=== PATIENT | female | born 1965 | race African-American/Black ===

== ENCOUNTER 2017-02-24 02:44 | Emergency (ER) | payer OTHER ==
[~2017-02-24] VITALS: Ht 180.3 cm; Wt 78.0 kg
[~2017-02-24 02:44] MED LIST: AMLO10 PO; ATOR20TA15 PO; FERR325T PO; HYDR12.57 PO; PANT40TA3 PO
[2017-02-24 02:47] VITALS: BP 179/99; PULSE 124; RESP 16; TEMP 98.8; O2SAT 99
[2017-02-24] MEDS ORDERED: TRAM50TA PO (03:03)
[2017-02-24] MEDS ORDERED: SODIUM CHLORIDE 0.9% FLUSH 10 ML FLUSH IVF PRN (03:15)
--- NOTE | 2017-02-24 03:16 | PD ---
HPI Chief Complaint: Chest Pain Time Seen by Provider: 03:01 Travel History International Travel<30 days: No Contact w/Intl Traveler<30days: No Traveled to known affect area: No History of Present Illness HPI The patient is a 51-year-old [place] female who presents emergency department for chest pain and shortness of breath. The patient has a history of ovarian cancer and is status post total hysterectomy for her ovarian cancer by her surgical oncologist, Dr. Velasco. The patient states she is currently undergoing chemotherapy every 21 days, last chemotherapy was 8 days ago. The patient states she developed shortness of breath on Sunday, is constant, but waxes and wanes in intensity. She also complains of mild chest pain which is dull, achy, located over the anterior aspect of her chest. She denies any exertional symptoms and denies any alleviation of her symptoms with rest. The patient does note mild nausea with an episode of vomiting, but denies any diaphoresis. The patient does have a history tobacco use, but denies any personal history of COPD, asthma, pulmonary embolism, or DVT. The patient denies any history of diabetes or significant family history for heart disease, but does have a history of hypertension and hyperlipidemia. The patient's primary physician is Dr. Mares with [facility]. The patient denies any assisted fever, chills, sweats, or new cough. She does complain of bilateral legs aching, but denies any significant edema to the calves. She does complain of mild swelling of the right upper leg over the thigh area. PFSH Past Medical History Anemia: Yes Arthritis: No Asthma: No Blood Disorders: No Anxiety: No Depression: No Heart Rhythm Problems: No Cancer: Yes (ovarian ) Cardiac Catheterization: No Cardiovascular Problems: No High Cholesterol: No Chemotherapy: No Chest Pain: Yes Congestive Heart Failure: No COPD: No Cerebrovascular Accident: No Diabetes: No Diminished Hearing: No Endocrine: No Gastrointestinal Disorders: Yes (PT STATES THAT SHE HAS A SPOT ON HER LIVER BUT HAS NOT RECEIVED F/U CARE ) GERD: No Glaucoma: No Genitourinary: No Headaches: No Hepatitis: No Hiatal Hernia: No Hypertension: Yes Immune Disorder: No Kidney Stones: No Musculoskeletal: No Neurologic: No Psychiatric: No Reproductive: No Respiratory: No Immunizations Current: No Myocardial Infarction: No Radiation Therapy: No Renal Failure: No Seizures: No Sickle Cell Disease: No Sleep Apnea: No Thyroid Disease: No Ulcer: No ?: Not Tubal Ligation: Yes Past Surgical History Abdominal Surgery: No AICD: No Cardiac Surgery: No Coronary Artery Bypass Graft: No Ear Surgery: No Endocrine Surgery: No Eye Surgery: No Genitourinary Surgery: No Gynecologic Surgery: Yes (TUBAL LIGATION 1985) Joint Replacement: No Oral Surgery: No Pacemaker: No Thoracic Surgery: No Social History Alcohol Use: No Tobacco Use: Yes (1 PPD) Substance Use: No Allergies-Medications (Allergen,Severity, Reaction): Coded Allergies: No Known Allergies (Verified , 09/11/16) Reported Meds & Prescriptions Reported Meds & Active Scripts Active Reported Tramadol (Tramadol HCl) 50 Mg Tab 0 PO Q4H PRN Pantoprazole (Pantoprazole Sodium) 40 Mg Tab 40 Mg PO DAILY Atorvastatin (Atorvastatin Calcium) 20 Mg Tab 20 Mg PO DAILY Norvasc (Amlodipine Besylate) 10 Mg Tab 10 Mg PO DAILY Hydrochlorothiazide 12.5 Mg Cap 12.5 Mg PO DAILY Ferrous Sulfate 325 Mg Tab 325 Mg PO BID Review of Systems Except as stated in HPI: all other systems reviewed are Neg General / Constitutional: No: Fever, Chills Cardiovascular: Positive: Chest Pain or Discomfort, No: Diaphoresis, Dyspnea on exertion Respiratory: Positive: Shortness of Breath, No: Cough, Wheezing Gastrointestinal: Positive: Nausea, Vomiting, No: Abdominal Pain Musculoskeletal: Positive: Edema (right thigh) Neurologic: No: Dizziness Physical Exam Narrative GENERAL: Awake, alert, pleasant 51-year-old female who appears her stated age and is in no acute respiratory distress. SKIN: Focused skin assessment warm/dry. Psoriatic plaque over the anterior aspect of the abdomen on the left. HEAD: Atraumatic. Normocephalic. EYES: Pupils equal and round. No scleral icterus. No injection or drainage. ENT: No nasal bleeding or discharge. Mucous membranes pink and moist. NECK: Trachea midline. No JVD. CARDIOVASCULAR: Regular, tachycardic with a heart rate of 110. Port in place right chest wall. RESPIRATORY: No accessory muscle use. Clear to auscultation. Breath sounds equal bilaterally. GASTROINTESTINAL: Abdomen soft, non-tender, nondistended. No rebound tenderness. MUSCULOSKELETAL: No obvious deformities. No clubbing. No cyanosis. No edema. Calves are soft bilaterally. NEUROLOGICAL: Awake and alert. No obvious cranial nerve deficits. Motor grossly within normal limits. Normal speech. PSYCHIATRIC: Appropriate mood and affect; insight and judgment normal. Data Data Last Documented VS Vital Signs Date Time Temp Pulse Resp B/P Pulse Ox O2 Delivery O2 Flow Rate FiO2 02/24/17 03:24 99 Room Air 02/24/17 02:59 123 02/24/17 02:47 98.8 16 179/99 Orders Complete Blood Count With Diff (02/24/17 03:10) Comprehensive Metabolic Panel (02/24/17 03:10) B-Type Natriuretic Peptide (02/24/17 03:10) Act Partial Throm Time (Ptt) (02/24/17 03:10) Prothrombin Time / Inr (Pt) (02/24/17 03:10) Magnesium (Mg) (02/24/17 03:10) Ckmb (Isoenzyme) Profile (02/24/17 03:10) Troponin I (02/24/17 03:10) Urinalysis - C+S If Indicated (02/24/17 03:10) Blood Culture (02/24/17 03:10) Iv Access Insert/Monitor (02/24/17 03:10) Electrocardiogram (02/24/17 03:10) Ecg Monitoring (02/24/17 03:10) Oximetry (02/24/17 03:10) Oxygen Administration (02/24/17 03:10) Chest, Single Ap (02/24/17 03:10) Ct Pulmonary Angiogram (02/24/17 03:10) Sodium Chloride 0.9% Flush (Ns Flush) (02/24/17 03:15) Sodium Chlor 0.9% 1000 Ml Inj (Ns 1000 M (02/24/17 03:30) Iohexol 350 Inj (Omnipaque 350 Inj) (02/24/17 03:59) Potassium Chloride (Kcl) (02/24/17 05:00) Labs Laboratory Tests Test 02/24/17 03:10 White Blood Count 4.1 TH/MM3 Red Blood Count 2.96 MIL/MM3 Hemoglobin 8.4 GM/DL Hematocrit 25.3 % Mean Corpuscular Volume 85.4 FL Mean Corpuscular Hemoglobin 28.5 PG Mean Corpuscular Hemoglobin 33.3 % Concent Red Cell Distribution Width 25.6 % Platelet Count 104 TH/MM3 Mean Platelet Volume 7.6 FL Neutrophils (%) (Auto) 44.1 % Lymphocytes (%) (Auto) 48.0 % Monocytes (%) (Auto) 7.2 % Eosinophils (%) (Auto) 0.4 % Basophils (%) (Auto) 0.3 % Neutrophils # (Auto) 1.8 TH/MM3 Lymphocytes # (Auto) 2.0 TH/MM3 Monocytes # (Auto) 0.3 TH/MM3 Eosinophils # (Auto) 0.0 TH/MM3 Basophils # (Auto) 0.0 TH/MM3 CBC Comment AUTO DIFF Differential Comment AUTO DIFF CONFIRMED Prothrombin Time 11.2 SEC Prothromb Time International 1.0 RATIO Ratio Activated Partial 26.1 SEC Thromboplast Time Sodium Level 140 MEQ/L Potassium Level 3.0 MEQ/L Chloride Level 104 MEQ/L Carbon Dioxide Level 26.8 MEQ/L Anion Gap 9 MEQ/L Blood Urea Nitrogen 21 MG/DL Creatinine 0.99 MG/DL Estimat Glomerular Filtration 71 ML/MIN Rate Random Glucose 87 MG/DL Calcium Level 9.1 MG/DL Magnesium Level 0.9 MG/DL Total Bilirubin 0.2 MG/DL Aspartate Amino Transf 18 U/L (AST/SGOT) Alanine Aminotransferase 24 U/L (ALT/SGPT) Alkaline Phosphatase 87 U/L Total Creatine Kinase 78 U/L Troponin I LESS THAN 0.02 NG/ML B-Type Natriuretic Peptide 12 PG/ML Total Protein 7.7 GM/DL Albumin 3.7 GM/DL MDM Medical Decision Making Medical Screen Exam Complete: Yes Emergency Medical Condition: Yes Medical Record Reviewed: Yes Interpretation(s) EKG reveals sinus arrhythmia versus atrial fibrillation with RVR, rate 119. Laboratory Tests Test 02/24/17 03:10 White Blood Count 4.1 TH/MM3 Red Blood Count 2.96 MIL/MM3 Hemoglobin 8.4 GM/DL Hematocrit 25.3 % Mean Corpuscular Volume 85.4 FL Mean Corpuscular Hemoglobin 28.5 PG Mean Corpuscular Hemoglobin 33.3 % Concent Red Cell Distribution Width 25.6 % Platelet Count 104 TH/MM3 Mean Platelet Volume 7.6 FL Neutrophils (%) (Auto) 44.1 % Lymphocytes (%) (Auto) 48.0 % Monocytes (%) (Auto) 7.2 % Eosinophils (%) (Auto) 0.4 % Basophils (%) (Auto) 0.3 % Neutrophils # (Auto) 1.8 TH/MM3 Lymphocytes # (Auto) 2.0 TH/MM3 Monocytes # (Auto) 0.3 TH/MM3 Eosinophils # (Auto) 0.0 TH/MM3 Basophils # (Auto) 0.0 TH/MM3 CBC Comment AUTO DIFF Differential Comment AUTO DIFF CONFIRMED Prothrombin Time 11.2 SEC Prothromb Time International 1.0 RATIO Ratio Activated Partial 26.1 SEC Thromboplast Time Sodium Level 140 MEQ/L Potassium Level 3.0 MEQ/L Chloride Level 104 MEQ/L Carbon Dioxide Level 26.8 MEQ/L Anion Gap 9 MEQ/L Blood Urea Nitrogen 21 MG/DL Creatinine 0.99 MG/DL Estimat Glomerular Filtration 71 ML/MIN Rate Random Glucose 87 MG/DL Calcium Level 9.1 MG/DL Magnesium Level 0.9 MG/DL Total Bilirubin 0.2 MG/DL Aspartate Amino Transf 18 U/L (AST/SGOT) Alanine Aminotransferase 24 U/L (ALT/SGPT) Alkaline Phosphatase 87 U/L Total Creatine Kinase 78 U/L Troponin I LESS THAN 0.02 NG/ML B-Type Natriuretic Peptide 12 PG/ML Total Protein 7.7 GM/DL Albumin 3.7 GM/DL Last Impressions Chest X-Ray 02/24/17309 Signed Impressions: Service Date/Time: Friday, February 24, 2017 03:21 - CONCLUSION: No acute disease. Vincent Buitrago Jr., MD CT Angiography 02/24/17309 Signed Impressions: Service Date/Time: Friday, February 24, 2017 03:57 - CONCLUSION: 1. No acute abnormality. In particular, no pulmonary emboli. 2. Stable low density lesion involving the left lobe of the liver. This is poorly characterized on this study. Vincent Buitrago Jr., MD Differential Diagnosis Differential diagnosis includes pulmonary embolism, pneumonia, bronchitis, acute coronary syndrome, pleural effusion, STEMI. Narrative Course The patient did not want her port accessed. Therefore, IV was established, labs were drawn and sent, and the patient was placed on cardiac telemetry monitoring and continuous pulse oximetry monitoring. EKG was ordered and interpreted. Chest x-ray was obtained. CT pulmonary angiogram was ordered to evaluate for possible pulmonary embolism with a history of ovarian cancer, tachycardia, and shortness of breath. The patient's troponin is unremarkable. Chest x-ray was clear. CT pulmonary angiogram is negative for emboli. The patient was administered IV fluids, heart rate came down 88. The patient was reassessed at 4:45 AM, she had no chest pain or shortness of breath. I had a discussion with the patient, she states she had a stress test performed in September 2016 which was negative. The patient states her symptoms have improved. We discussed 23 hour observation versus discharge home. The patient would prefer to be discharged home and follow-up with Dr. Mares and Dr. Velasco. Therefore, patient will be provided pain medication per her request and will be discharged home with a copy of her CT results and lab results. She is advised to return if symptoms worsen or progress. The patient's potassium was low at 3.0, was replaced orally. Diagnosis Primary Impression: Dyspnea Qualified Code: R06.00 - Dyspnea, unspecified type Additional Impression: Atypical chest pain Patient Instructions: General Instructions Additional Instructions: Please provide a patient a copy of her labs, x-ray results, and CT results at discharge. Follow-up with your primary physician and surgical oncologist. Return if symptoms worsen or progress. Med/Other Pt SpecificInfo: Prescription(s) given Scripts Hydrocodone-Acetaminophen ([place])10-325 Mg Tab1 Tab PO Q6H PRN (PAIN) #15 TAB Ref 0 Prov:Lawrence James MD 02/24/17 Disposition: 01 DISCHARGE HOME Condition: Stable Lawrence James MD Feb 24, 2017 03:15
[2017-02-24 03:24] VITALS: O2SAT 99
[2017-02-24 03:27] LABS: AUTOMATED NEUTROPHIL # 1.8 TH/MM3 (1.8-7.7); BASOPHIL % 0.3 % (0.0-2.0); EOSINOPHIL % 0.4 % (0.0-4.0); HEMATOCRIT 25.3 % (35.0-46.0); MEAN CELL VOLUME 85.4 FL (80.0-100.0); MEAN CORPUSCULAR HEMOGLOBIN 28.5 PG (27.0-34.0); MEAN CORPUSCULAR HGB CONC 33.3 % (32.0-36.0); MONO % 7.2 % (0.0-8.0); NEUT % 44.1 % (16.0-70.0); PLATELET COUNT 104 TH/MM3 (150-450); RED BLOOD COUNT 2.96 MIL/MM3 (4.00-5.30); RED CELL DISTRIBUTION WIDTH 25.6 % (11.6-17.2); WHITE BLOOD COUNT 4.1 TH/MM3 (4.0-11.0)
[2017-02-24 03:28] LABS: HEMO FLAGS AUTO DIFF
[2017-02-24] MEDS ORDERED: SODIUM CHLOR 0.9% 1000 ML INJ 1,000 ML IV ONE (03:30)
[2017-02-24 03:41] LABS: APTT (PATIENT) 26.1 SEC (24.3-30.1); PROTHROMBIN TIME - PATIENT 11.2 SEC (9.8-11.6)
[2017-02-24 03:42] LABS: ALT (GPT) 24 U/L (10-53); ANION GAP 9 MEQ/L (5-15); AST (GOT) 18 U/L (15-37); BICARBONATE 26.8 MEQ/L (21.0-32.0); BLOOD UREA NITROGEN 21 MG/DL (7-18); CHLORIDE 104 MEQ/L (98-107); GLOMERULAR FILTRATION RATE 71 ML/MIN (>89); MAGNESIUM 0.9 MG/DL (1.5-2.5); SODIUM (NA) 140 MEQ/L (136-145)
[2017-02-24 03:45] LABS: ALKALINE PHOSPHATASE 87 U/L (45-117); TOTAL BILIRUBIN ADULT 0.2 MG/DL (0.2-1.0)
[2017-02-24 03:47] LABS: CREATINE KINASE 78 U/L (26-192)
[2017-02-24] MEDS ORDERED: IOHEXOL 350 MG/ML 10 ML VIAL (for RAD DIAG) IV ONE (03:59)
[2017-02-24 04:26] LABS: SCAN/DIFF AUTO DIFF CONFIRMED
--- NOTE | 2017-02-24 04:42 | RADRPT ---
EXAM DATE/TIME: 02/24/2017 03:57 [facility] COMPARISON: CT ABDOMEN & PELVIS W/O CONTRAST, July 14, 2016, 18:39. INDICATIONS : Shortness of breath with chest pain. IV CONTRAST: 73 cc Omnipaque 350 (iohexol) IV RADIATION DOSE: 23.11 CTDIvol (mGy) MEDICAL HISTORY : Hypertension. Carcinoma, ovarian. - recent chemotherapy. SURGICAL HISTORY : None. ENCOUNTER: Initial ACUITY: 4 - 6 days PAIN SCALE: 5/10 LOCATION: Bilateral chest TECHNIQUE: Volumetric scanning of the chest was performed using a pulmonary embolism protocol MIP images were re constructed. Using automated exposure control and adjustment of the mA and/or kV according to patien t size, radiation dose was kept as low as reasonably achievable to obtain optimal diagnostic quality images. FINDINGS: PULMONARY ARTERIES: No filling defects are seen in the pulmonary arteries through the segmental level. LUNGS: There is no consolidation or pneumothorax . No concerning pulmonary nodule is visualized. PLEURAE: There is no pleural thickening or pleural effusion. MEDIASTINUM: There is good visualization of the great vessels of the middle mediastinum. No evidence of mediastin al or hilar adenopathy/mass. MUSCULOSKELETAL: Within normal limits for patient age. MISCELLANEOUS: The visualized upper abdominal organs demonstrate no acute abnormality. A 3.6 cm low-density lesion i nvolving the left lobe of the liver is unchanged. CONCLUSION: 1. No acute abnormality. In particular, no pulmonary emboli. 2. Stable low density lesion involving the left lobe of the liver. This is poorly characterized on is study. Vincent Buitrago Jr., MD on February 24, 2017 at 4:34 Board Certified Radiologist. This report was verified electronically.
--- NOTE | 2017-02-24 04:43 | RADRPT ---
EXAM DATE/TIME: 02/24/2017 03:21 [facility] COMPARISON: CHEST SINGLE AP, July 14, 2016, 1:43. INDICATIONS : Shortness of breath with left sided chest pains x 1 day. MEDICAL HISTORY : Ovarian Cancer SURGICAL HISTORY : Chemo Port ENCOUNTER: Initial ACUITY: 1 day PAIN SCORE: 5/10 LOCATION: Bilateral chest FINDINGS: A single view of the chest demonstrates the lungs to be symmetrically aerated without evidence of mas s, infiltrate or effusion. The cardiomediastinal contours are unremarkable. Osseous structures are intact. A power port is noted on the left. CONCLUSION: No acute disease. Vincent Buitrago Jr., MD on February 24, 2017 at 4:41 Board Certified Radiologist. This report was verified electronically.
[2017-02-24] MEDS ORDERED: HYDR-3366 PO (04:59)
[2017-02-24] MEDS ORDERED: POTASSIUM CHLORIDE 20 MEQ CONTROLLED RELEASE TAB PO ONE (05:00)
--- NOTE | 2017-02-24 14:03 | EKG ---
Date Performed: 02/24/2017 Time Performed: 03:15:00 PTAGE: 51 years EKG: Sinus tachycardia NONSPECIFIC T-WAVE ABNORMALITY Rate has increased since prior tracing Cli nical correlation is recommended ABNORMAL RHYTHM ECG PREVIOUS TRACING : 07/14/2016 07.41 DOCTOR: Murtaza Manjarrez Interpretating Date/Time 02/24/2017 14:02:47
== END 2017-02-24 05:51 | disposition home or self-care (01) ==
LOC: NEPC 02:44
DX: R06.00 Dyspnea, unspecified (principal); R07.89 Other chest pain; D64.9 Anemia, unspecified; I10 Essential (primary) hypertension; F17.210 Nicotine dependence, cigarettes, uncomplicated
CPT/HCPCS: 71010; 71275; 80053; 82550; 83735; 83880; 84484; 85025; 85610; 85730; 87040; 93005; 99285; J7030; Q9967